=== PATIENT | female | born 2000 | race Caucasian/White ===

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

== ENCOUNTER 2018-01-08 16:07 | Emergency (ER) | payer SELFPAY ==
[~2018-01-08] VITALS: Ht 160 cm; Wt 49.0 kg
[~2018-01-08 16:07] MED LIST: CLAR10CA3 PO; FAMO1TAB73 PO; MEDR4PAK PO
[2018-01-08 16:12] VITALS: BP 126/70; PULSE 90; RESP 22; TEMP 98.3; O2SAT 97
[2018-01-08] MEDS ORDERED: SODIUM CHLOR 0.9% 1000 ML INJ 1,000 ML IV SCH (16:37)
--- NOTE | 2018-01-08 16:37 | PD ---
HPI Chief Complaint: Abdominal Pain Time Seen by Provider: 16:21 Travel History International Travel<30 days: No Contact w/Intl Traveler<30days: No Traveled to known affect area: No History of Present Illness HPI Patient comes in stating that she developed a lower abdominal pain onset since 12:30 PM today, specifically suprapubic area, sharp, 8-9 out of 10 nonradiating.. Patient states that her last menstrual period was November 26, she took a home test 2 and both were negative. Patient denies any vaginal bleeding, vaginal discharge, fever, nausea, vomiting, or diarrhea. Patient states allergy only to chocolate flavor and honeybee Per parent and patient denies significant past medical or surgical history. PFSH Past Medical History Medical History: Denies Significant Hx Cardiovascular Problems: No Developmental Delay: No Diminished Hearing: No Gastrointestinal Disorders: Yes Genitourinary: Yes Inguinal Hernia: Yes (NO REPAIR) Musculoskeletal: Yes (SCOLIOSIS) Neurologic: No Immunizations Current: Yes Seizures: No Sickle Cell Disease: No Tetanus Vaccination: Unknown Influenza Vaccination: No ?: Unknown LMP: 10/29/17 Past Surgical History Surgical History: No Previous Surgery Social History Alcohol Use: No Tobacco Use: No Substance Use: No Allergies-Medications (Allergen,Severity, Reaction): Coded Allergies: bee venom protein (honey bee) (Unverified Allergy, Severe, Anaphylaxis, ) chocolate flavor (Unverified Allergy, Severe, facial swelling, 01/08/18) Reported Meds & Prescriptions Reported Meds & Active Scripts Active Review of Systems General / Constitutional: No: Fever Eyes: No: Visual changes HENT: No: Headaches Cardiovascular: No: Chest Pain or Discomfort Respiratory: No: Shortness of Breath Gastrointestinal: Positive: Abdominal Pain Genitourinary: No: Dysuria Musculoskeletal: No: Pain Skin: No Rash Neurologic: No: Weakness Psychiatric: No: Depression Endocrine: No: Polydipsia Hematologic/Lymphatic: No: Easy Bruising Physical Exam Narrative GENERAL: SKIN: Warm and dry. HEAD: Atraumatic. Normocephalic. EYES: Pupils equal and round. No scleral icterus. No injection or drainage. ENT: No nasal bleeding or discharge. Mucous membranes pink and moist. NECK: Trachea midline. No JVD. CARDIOVASCULAR: Regular rate and rhythm. RESPIRATORY: No accessory muscle use. Clear to auscultation. Breath sounds equal bilaterally. GASTROINTESTINAL: Abdomen soft, nondistended, no rigidity/guarding/rebound. Patient does have mild tenderness to percussion over the suprapubic region MUSCULOSKELETAL: Extremities without clubbing, cyanosis, or edema. No obvious deformities. NEUROLOGICAL: Awake and alert. No obvious cranial nerve deficits. Motor grossly within normal limits. Five out of 5 muscle strength in the arms and legs. Normal speech. PSYCHIATRIC: Appropriate mood and affect; insight and judgment normal. Data Data Last Documented VS Vital Signs Date Time Temp Pulse Resp B/P (MAP) Pulse Ox O2 Delivery O2 Flow Rate FiO2 01/08/18 16:12 98.3 90 22 126/70 (88) 97 Orders Orders Beta Hcg (Quant/Titer) (01/08/18 16:37) Complete Blood Count With Diff (01/08/18 16:37) Comprehensive Metabolic Panel (01/08/18 16:37) Lipase (01/08/18 16:37) Urinalysis - C+S If Indicated (01/08/18 16:37) Ct Abd/Pel W Iv Contrast(Rout) (01/08/18 16:37) Iv Access Insert/Monitor (01/08/18 16:37) Ecg Monitoring (01/08/18 16:37) Oximetry (01/08/18 16:37) Morphine Inj (Morphine Inj) (01/08/18 16:45) Ondansetron Inj (Zofran Inj) (01/08/18 16:45) Sodium Chlor 0.9% 1000 Ml Inj (Ns 1000 M (01/08/18 16:37) Sodium Chloride 0.9% Flush (Ns Flush) (01/08/18 16:45) Ed Urine Pregnancytest Poc (01/08/18 16:37) Iohexol 350 Inj (Omnipaque 350 Inj) (01/08/18 17:58) Labs Laboratory Tests Test 01/08/18 16:40 01/08/18 16:55 White Blood Count 8.1 TH/MM3 Red Blood Count 4.63 MIL/MM3 Hemoglobin 13.9 GM/DL Hematocrit 41.1 % Mean Corpuscular Volume 88.9 FL Mean Corpuscular Hemoglobin 30.0 PG Mean Corpuscular Hemoglobin Concent 33.8 % Red Cell Distribution Width 12.5 % Platelet Count 181 TH/MM3 Mean Platelet Volume 9.4 FL Neutrophils (%) (Auto) 76.9 % Lymphocytes (%) (Auto) 16.3 % Monocytes (%) (Auto) 5.3 % Eosinophils (%) (Auto) 0.5 % Basophils (%) (Auto) 1.0 % Neutrophils # (Auto) 6.3 TH/MM3 Lymphocytes # (Auto) 1.3 TH/MM3 Monocytes # (Auto) 0.4 TH/MM3 Eosinophils # (Auto) 0.0 TH/MM3 Basophils # (Auto) 0.1 TH/MM3 CBC Comment DIFF FINAL Differential Comment Blood Urea Nitrogen 9 MG/DL Creatinine 0.53 MG/DL Random Glucose 93 MG/DL Total Protein 8.0 GM/DL Albumin 4.1 GM/DL Calcium Level 8.8 MG/DL Alkaline Phosphatase 80 U/L Aspartate Amino Transf (AST/SGOT) 11 U/L Alanine Aminotransferase (ALT/SGPT) 15 U/L Total Bilirubin 1.0 MG/DL Sodium Level 137 MEQ/L Potassium Level 3.6 MEQ/L Chloride Level 107 MEQ/L Carbon Dioxide Level 23.4 MEQ/L Anion Gap 7 MEQ/L Estimat Glomerular Filtration Rate 149 ML/MIN Lipase 73 U/L Human Chorionic Gonadotropin, Quant LESS THAN 1 MIU/ML Urine Color YELLOW Urine Turbidity CLEAR Urine pH 7.0 Urine Specific [place] 1.010 Urine Protein NEG mg/dL Urine Glucose (UA) NEG mg/dL Urine Ketones 40 mg/dL Urine Occult Blood NEG Urine Nitrite NEG Urine Bilirubin NEG Urine Urobilinogen 1.0 MG/DL Urine Leukocyte Esterase NEG Urine WBC 0-2 /hpf Urine Squamous Epithelial Cells 0-5 /hpf Microscopic Urinalysis Comment CULT NOT INDICATED MDM Medical Decision Making Medical Screen Exam Complete: Yes Emergency Medical Condition: Yes Medical Record Reviewed: Yes Differential Diagnosis related(ectopic versus AB) versus UTI versus colitis versus appendicitis versus diverticulitis Narrative Course Patient is not by urine test as well as quantitative hCG UA shows no evidence of a UTI CBC shows no evidence of any leukocytosis, no anemia, no left shift and no evidence of any abnormal platelet count Elect lites are all within normal limits, normal kidney liver and pancreatic functions. CT scan reading as reported by radiologist does not show any evidence of appendicitis. No lymphadenopathy. No hernia. No evidence of any obstruction or focal acute inflammatory changes are demonstrated. Small nonspecific free fluid of unclear etiology. Diagnosis Primary Impression: Abdominal pain NOS Patient Instructions: General Instructions, Ovarian Cyst (DC) Scripts Ondansetron Odt (Zofran Odt) 4 Mg Tab 4 MG SL Q6HR Y for Nausea/Vomiting, #12 TAB 0 Refills Prov: Alan Cassidy MD 01/08/18 Tramadol (Ultram) 50 Mg Tab 50 MG PO Q6H Y for PAIN for 3 Days, #12 TAB 0 Refills Prov: Alan Cassidy MD 01/08/18 Disposition: 01 DISCHARGE HOME Condition: Stable Alan Cassidy MD Jan 08, 2018 16:37
[2018-01-08] MEDS ORDERED: ONDANSETRON HCL 4 MG/2 ML VIAL IVP ONE (16:45)
[2018-01-08] MEDS ORDERED: MORPHINE SULFATE 4 MG/ML INJ IV PUSH ONE (16:45)
[2018-01-08] MEDS ORDERED: SODIUM CHLORIDE 0.9% FLUSH 10 ML FLUSH IV FLUSH PRN (16:45)
[2018-01-08 16:54] LABS: AUTOMATED NEUTROPHIL # 6.3 TH/MM3 (1.8-7.7); BASOPHIL # 0.1 TH/MM3 (0-0.2); EOSINOPHIL % 0.5 % (0.0-4.0); HEMATOCRIT 41.1 % (35.0-46.0); HEMOGLOBIN 13.9 GM/DL (11.6-15.3); LYMPH % 16.3 % (9.0-44.0); LYMPHOCYTE # 1.3 TH/MM3 (1.0-4.8); MEAN CELL VOLUME 88.9 FL (80.0-100.0); MEAN CORPUSCULAR HGB CONC 33.8 % (32.0-36.0); MEAN PLATELET VOLUME 9.4 FL (7.0-11.0); MONO % 5.3 % (0.0-8.0); MONOCYTE # 0.4 TH/MM3 (0-0.9); NEUT % 76.9 % (16.0-70.0); PLATELET COUNT 181 TH/MM3 (150-450); RED BLOOD COUNT 4.63 MIL/MM3 (4.00-5.30); RED CELL DISTRIBUTION WIDTH 12.5 % (11.6-17.2); WHITE BLOOD COUNT 8.1 TH/MM3 (4.0-11.0)
[2018-01-08 17:00] LABS: CHLORIDE 107 MEQ/L (98-107); SODIUM (NA) 137 MEQ/L (136-145)
[2018-01-08 17:03] LABS: CALCIUM 8.8 MG/DL (8.5-10.1)
[2018-01-08 17:04] LABS: ALBUMIN 4.1 GM/DL (3.4-5.0); BICARBONATE 23.4 MEQ/L (21.0-32.0); BLOOD UREA NITROGEN 9 MG/DL (7-18); GLUCOSE,RANDOM 93 MG/DL (74-106)
[2018-01-08 17:07] LABS: ALT (GPT) 15 U/L (9-42); AST (GOT) 11 U/L (16-38); CREATININE 0.53 MG/DL (0.50-1.00); GLOMERULAR FILTRATION RATE 149 ML/MIN (>89)
[2018-01-08 17:10] LABS: ALKALINE PHOSPHATASE 80 U/L (45-117)
[2018-01-08 17:12] LABS: BILIRUBIN, URINE NEG (NEG); BLOOD, URINE NEG (NEG); GLUCOSE,URINE NEG (NEG); KETONE, URINE 40 mg/dL (NEG); NITRITE,URINE NEG (NEG); URINE COLOR YELLOW (YELLW/STRAW); URINE LEUKOCYTE ESTERASE NEG (NEG)
[2018-01-08 17:30] LABS: SQUAMOUS EPITHELIAL CELL URINE 0-5 /hpf (0-5); WBC, URINE 0-2 /hpf (0-5)
[2018-01-08] MEDS ORDERED: IOHEXOL 350 MG/ML 10 ML VIAL (for RAD DIAG) IVCONTRAST ONE (17:58)
--- NOTE | 2018-01-08 18:21 | RADRPT ---
EXAM DATE/TIME: 01/08/2018 17:49 [facility] COMPARISON: No previous studies available for comparison. INDICATIONS : Diffuse abdominal pain. IV CONTRAST: 90 cc Omnipaque 350 (iohexol) IV ORAL CONTRAST: No oral contrast ingested. RADIATION DOSE: 4.70 CTDIvol (mGy) MEDICAL HISTORY : Inguinal hernia SURGICAL HISTORY : None. ENCOUNTER: Initial ACUITY: 1 week PAIN SCALE: 10/10 LOCATION: Diffuse abdomen. TECHNIQUE: Volumetric scanning of the abdomen and pelvis was performed. Using automated exposure control and ad justment of the mA and/or kV according to patient size, radiation dose was kept as low as reasonably achievable to obtain optimal diagnostic quality images. DICOM format image data is available electro nically for review and comparison. FINDINGS: LOWER LUNGS: The visualized lower lungs are clear. LIVER: Homogeneous density without lesion. There is no dilation of the biliary tree. No calcified gallston es. SPLEEN: Normal size without lesion. PANCREAS: Within normal limits. KIDNEYS: Normal in size and shape. There is no mass, stone or hydronephrosis. ADRENAL GLANDS: Within normal limits. VASCULAR: There is no aortic aneurysm. BOWEL/MESENTERY: The stomach, small bowel, and colon demonstrate no acute abnormality. There is small free fluid in Mo rison's pouch, right pericolic gutter and the pelvic cul-de-sac. The appendix is within normal limits .. ABDOMINAL WALL: Within normal limits. RETROPERITONEUM: There is no lymphadenopathy. BLADDER: No wall thickening or mass. REPRODUCTIVE: Within normal limits. INGUINAL: There is no lymphadenopathy or hernia. MUSCULOSKELETAL: Within normal limits for patient age. CONCLUSION: Small nonspecific free fluid of unclear etiology. No obstruction or focal acute inflammatory changes are demonstrated. Dank Roy MD on January 08, 2018 at 18:17 Board Certified Radiologist. This report was verified electronically.
[2018-01-08] MEDS ORDERED: ZOFR4TAB3 SL (18:41)
[2018-01-08] MEDS ORDERED: TRAM50 PO (18:41)
[2018-01-08 19:18] VITALS: BP 110/72
== END 2018-01-08 19:05 | disposition home or self-care (01) ==
LOC: PHED 16:07
DX: R10.30 Lower abdominal pain, unspecified (principal); M41.9 Scoliosis, unspecified
CPT/HCPCS: 74177; 80053; 81001; 83690; 84702; 84703; 85025; 96374; 96375; 99284; J2270; J2405; J7030; Q9967

== ENCOUNTER 2018-01-12 20:29 | Emergency (ER) | payer SELFPAY ==
[~2018-01-12] VITALS: Ht 160 cm; Wt 47.0 kg
[~2018-01-12 20:29] MED LIST changes: -CLAR10CA3 PO; -FAMO1TAB73 PO; -MEDR4PAK PO; +TRAM50 PO; +ZOFR4TAB3 SL
[2018-01-12 20:47] VITALS: BP 139/107; PULSE 125; RESP 20; TEMP 99.4; O2SAT 96
[2018-01-12 21:47] VITALS: BP 123/70; PULSE 88; RESP 20; TEMP 99.5; O2SAT 100
[2018-01-12] MEDS ORDERED: SODIUM CHLOR 0.9% 1000 ML INJ 1,000 ML IV SCH (22:20)
[2018-01-12] MEDS ORDERED: PANTOPRAZOLE SODIUM 40 MG VIAL IVP ONE (22:30)
[2018-01-12] MEDS ORDERED: SODIUM CHLORIDE 0.9% FLUSH 10 ML FLUSH IV FLUSH PRN (22:30)
[2018-01-12 22:45] VITALS: BP 114/76; PULSE 78; RESP 14; O2SAT 100
--- NOTE | 2018-01-12 22:49 | PD ---
HPI Chief Complaint: Abdominal Pain Time Seen by Provider: 22:00 Travel History International Travel<30 days: No Contact w/Intl Traveler<30days: No Traveled to known affect area: No History of Present Illness HPI 17-year-old female came to the emergency room with diffuse abdominal pain that has been there for past 10 days. Patient says she was in this emergency room last Thursday when she had blood test, urine test and a CAT scan of her abdomen and pelvis done. She was discharged home on Zofran and tramadol prescription. Patient says that her vomiting subsided but the pain is still there. Vital signs are stable. was negative last time when she was here. She has not had pain like this in the past. Pain is worse on pushing on the abdomen. She does not have a primary care and hence has not followed up with anybody. [facility] Past Medical History Narrative Medical List of her past medical, surgical, social and family history reviewed from the nursing note. Cardiovascular Problems: No Developmental Delay: No Diminished Hearing: No Gastrointestinal Disorders: Yes Genitourinary: Yes Inguinal Hernia: Yes (NO REPAIR) Musculoskeletal: Yes (SCOLIOSIS) Neurologic: No Immunizations Current: Yes Seizures: No Sickle Cell Disease: No Tetanus Vaccination: Unknown Influenza Vaccination: No ?: Not LMP: 11/26/17 : 0 Past Surgical History Surgical History: No Previous Surgery Social History Alcohol Use: No Tobacco Use: No Substance Use: No Allergies-Medications (Allergen,Severity, Reaction): Coded Allergies: bee venom protein (honey bee) (Unverified Allergy, Severe, Anaphylaxis, 01/12/18) chocolate flavor (Unverified Allergy, Severe, facial swelling, 01/12/18) Comments List of her allergies reviewed from the nursing note Reported Meds & Prescriptions Reported Meds & Active Scripts Active Ibuprofen 600 Mg Tab 600 Mg PO Q6H PRN Zofran Odt (Ondansetron Odt) 4 Mg Tab 4 Mg SL Q6HR PRN Ultram (Tramadol HCl) 50 Mg Tab 50 Mg PO Q6H PRN 3 Days Narrative Medication List of her home medications reviewed from the nursing note. Review of Systems Except as stated in HPI: all other systems reviewed are Neg Gastrointestinal: Positive: Abdominal Pain Physical Exam Narrative GENERAL: Awake, alert, moderate distress SKIN: Focused skin assessment warm/dry. HEAD: Atraumatic. Normocephalic. EYES: Pupils equal and round. No scleral icterus. No injection or drainage. ENT: No nasal bleeding or discharge. Mucous membranes pink and moist. NECK: Trachea midline. No JVD. CARDIOVASCULAR: Regular rate and rhythm. No murmur appreciated. RESPIRATORY: No accessory muscle use. Clear to auscultation. Breath sounds equal bilaterally. GASTROINTESTINAL: Abdomen soft, tenderness on generalized palpation, nondistended. Hepatic and splenic margins not palpable. MUSCULOSKELETAL: No obvious deformities. No clubbing. No cyanosis. No edema. NEUROLOGICAL: Awake and alert. No obvious cranial nerve deficits. Motor grossly within normal limits. Normal speech. PSYCHIATRIC: Appropriate mood and affect; insight and judgment normal. Data Data Last Documented VS Vital Signs Date Time Temp Pulse Resp B/P (MAP) Pulse Ox O2 Delivery O2 Flow Rate FiO2 01/12/18 23:50 01/12/18 23:20 87 14 100 Room Air 01/12/18 21:47 99.5 Orders Orders Complete Blood Count With Diff (01/12/18 22:20) Comprehensive Metabolic Panel (01/12/18 22:20) Lipase (01/12/18 22:20) Urinalysis - C+S If Indicated (01/12/18 22:20) Iv Access Insert/Monitor (01/12/18 22:20) Ecg Monitoring (01/12/18 22:20) Oximetry (01/12/18 22:20) Pantoprazole Inj (Protonix Inj) (01/12/18 22:30) Sodium Chlor 0.9% 1000 Ml Inj (Ns 1000 M (01/12/18 22:20) Sodium Chloride 0.9% Flush (Ns Flush) (01/12/18 22:30) Beta Hcg (Quant/Titer) (01/12/18 22:20) Ed Discharge Order (01/12/18 23:15) Labs Laboratory Tests Test 01/12/18 22:40 White Blood Count 7.7 TH/MM3 Red Blood Count 4.40 MIL/MM3 Hemoglobin 13.3 GM/DL Hematocrit 39.3 % Mean Corpuscular Volume 89.3 FL Mean Corpuscular Hemoglobin 30.3 PG Mean Corpuscular Hemoglobin Concent 33.9 % Red Cell Distribution Width 12.6 % Platelet Count 198 TH/MM3 Mean Platelet Volume 9.6 FL Neutrophils (%) (Auto) 72.2 % Lymphocytes (%) (Auto) 19.6 % Monocytes (%) (Auto) 7.0 % Eosinophils (%) (Auto) 0.6 % Basophils (%) (Auto) 0.6 % Neutrophils # (Auto) 5.7 TH/MM3 Lymphocytes # (Auto) 1.5 TH/MM3 Monocytes # (Auto) 0.5 TH/MM3 Eosinophils # (Auto) 0.0 TH/MM3 Basophils # (Auto) 0.0 TH/MM3 CBC Comment DIFF FINAL Differential Comment Urine Color YELLOW Urine Turbidity SL CLOUDY Urine pH 5.5 Urine Specific [place] 1.010 Urine Protein NEG mg/dL Urine Glucose (UA) NEG mg/dL Urine Ketones TRACE mg/dL Urine Occult Blood NEG Urine Nitrite NEG Urine Bilirubin NEG Urine Urobilinogen 0.2 MG/DL Urine Leukocyte Esterase TRACE Urine RBC 0-3 /hpf Urine WBC 3-5 /hpf Urine Squamous Epithelial Cells > 8 /hpf Urine Amorphous Sediment FEW Urine Bacteria FEW /hpf Microscopic Urinalysis Comment CULT NOT INDICATED Blood Urea Nitrogen 6 MG/DL Creatinine 0.56 MG/DL Random Glucose 86 MG/DL Total Protein 7.7 GM/DL Albumin 3.9 GM/DL Calcium Level 9.1 MG/DL Alkaline Phosphatase 67 U/L Aspartate Amino Transf (AST/SGOT) 8 U/L Alanine Aminotransferase (ALT/SGPT) 17 U/L Total Bilirubin 1.0 MG/DL Sodium Level 139 MEQ/L Potassium Level 3.6 MEQ/L Chloride Level 107 MEQ/L Carbon Dioxide Level 25.7 MEQ/L Anion Gap 6 MEQ/L Estimat Glomerular Filtration Rate 139 ML/MIN Lipase 64 U/L Human Chorionic Gonadotropin, Quant LESS THAN 1 MIU/ML [facility] Medical Decision Making Medical Screen Exam Complete: Yes Emergency Medical Condition: Yes Medical Record Reviewed: Yes Differential Diagnosis UTI, acute pancreatitis, Narrative Course 10:48 PM awaiting for blood test results and UA result. Patient had a CAT scan done recently and given her age and other CAT scan will not be repeated. I looked at the CAT scan report and it showed small amount of free fluid in the pelvis but no other abnormalities noticed. Blood work and UA were negative. I have explained to the patient that if the workup today is negative again she will be discharged home and will have to follow-up with probably [facility]. 11:16 PM blood test and UA are within normal limit. Patient will be discharged home. Procedures EKG Prior to Arrival: No Diagnosis Primary Impression: Abdominal pain Qualified Codes: R10.84 - Generalized abdominal pain Referrals: [facility] 2 days Additional Instructions: Continue taking the medication that you have been sent home on from the previous ER visit. Drink lots of fluid. Take this medication in addition if needed. Follow-up with the clinic whose number and address has been provided to you on this discharge instruction. If the pain continues then they should refer you to a GI specialist. Med/Other Pt SpecificInfo: Prescription(s) given Scripts Ibuprofen (Ibuprofen) 600 Mg Tab 600 MG PO Q6H Y for Pain/Inflammation, #40 TAB 0 Refills Prov: Cassidy Anderson MD 01/12/18 Disposition: 01 DISCHARGE HOME Condition: Stable Cassidy Anderson MD January 12, 2018 22:49
[2018-01-12 22:51] LABS: BILIRUBIN, URINE NEG (NEG); BLOOD, URINE NEG (NEG); GLUCOSE,URINE NEG (NEG); KETONE, URINE TRACE mg/dL (NEG); NITRITE,URINE NEG (NEG); PH, URINE 5.5 (5.0-8.5); URINE COLOR YELLOW (YELLW/STRAW); URINE LEUKOCYTE ESTERASE TRACE (NEG)
[2018-01-12 22:52] LABS: AUTOMATED NEUTROPHIL # 5.7 TH/MM3 (1.8-7.7); BASOPHIL % 0.6 % (0.0-2.0); EOSINOPHIL % 0.6 % (0.0-4.0); HEMATOCRIT 39.3 % (35.0-46.0); HEMOGLOBIN 13.3 GM/DL (11.6-15.3); LYMPH % 19.6 % (9.0-44.0); LYMPHOCYTE # 1.5 TH/MM3 (1.0-4.8); MEAN CELL VOLUME 89.3 FL (80.0-100.0); MEAN CORPUSCULAR HEMOGLOBIN 30.3 PG (27.0-34.0); MEAN CORPUSCULAR HGB CONC 33.9 % (32.0-36.0); MEAN PLATELET VOLUME 9.6 FL (7.0-11.0); MONOCYTE # 0.5 TH/MM3 (0-0.9); NEUT % 72.2 % (16.0-70.0); PLATELET COUNT 198 TH/MM3 (150-450); RED CELL DISTRIBUTION WIDTH 12.6 % (11.6-17.2); WHITE BLOOD COUNT 7.7 TH/MM3 (4.0-11.0)
[2018-01-12 22:57] LABS: RBC, URINE 0-3 /hpf (0-3); SQUAMOUS EPITHELIAL CELL URINE > 8 /hpf (0-5)
[2018-01-12 22:58] LABS: AMORPHOUS SEDIMENT, URINE FEW; BACTERIA, URINE FEW /hpf
[2018-01-12 23:00] LABS: CHLORIDE 107 MEQ/L (98-107); SODIUM (NA) 139 MEQ/L (136-145)
[2018-01-12 23:03] LABS: CALCIUM 9.1 MG/DL (8.5-10.1)
[2018-01-12 23:04] LABS: ALBUMIN 3.9 GM/DL (3.4-5.0); BICARBONATE 25.7 MEQ/L (21.0-32.0); BLOOD UREA NITROGEN 6 MG/DL (7-18); GLUCOSE,RANDOM 86 MG/DL (74-106)
[2018-01-12 23:07] LABS: ALT (GPT) 17 U/L (9-42); AST (GOT) 8 U/L (16-38); CREATININE 0.56 MG/DL (0.50-1.00); GLOMERULAR FILTRATION RATE 139 ML/MIN (>89)
[2018-01-12 23:08] LABS: TOTAL PROTEIN 7.7 GM/DL (6.4-8.2)
[2018-01-12 23:10] LABS: ALKALINE PHOSPHATASE 67 U/L (45-117)
[2018-01-12] MEDS ORDERED: IBUP-232 PO (23:17)
[2018-01-12 23:20] VITALS: BP 107/68; PULSE 87; RESP 14; O2SAT 100
== END 2018-01-12 23:54 | disposition home or self-care (01) ==
LOC: PHED 20:29
DX: R10.84 Generalized abdominal pain (principal); M41.9 Scoliosis, unspecified
CPT/HCPCS: 80053; 81001; 83690; 84702; 85025; 96361; 96374; 99284; C9113; J7030